=== PATIENT | female | born 1995 | race Caucasian/White ===

== ENCOUNTER 2017-04-19 11:42 | Emergency (ER) | payer BC ==
[2017-04-19 12:43] LABS: BILIRUBIN,URINE NEGATIVE (NEG); GLUCOSE,URINE NEGATIVE (NEG); NITRITE,URINE NEGATIVE (NEG); PH,URINE 5.5; PROTEIN,URINE NEGATIVE (NEG-TRACE); UROBILINOGEN,URINE 0.2 mg/dL (0.2 mg/dL)
[2017-04-19 12:52] LABS: BACTERIA,URINE 0 /HPF (0-FEW); RBC,URINE >40 /HPF (0-2); SQUAMOUS EPITHELIAL CELL,UR FEW /LPF; WBC,URINE 0 /HPF (0-4)
[2017-04-19 13:03] LABS: BASO # 0.1 x10^3/uL (0.0-0.2); BASO % 1 % (0-3); EOS % 2 % (0-3); HEMATOCRIT 38.8 % (36.0-47.0); HEMOGLOBIN 12.8 g/dL (12.0-15.5); LYMPH # 3.7 x10^3/uL (1.0-4.8); LYMPH % 39 % (24-48); MEAN CORPUSCULAR HEMOGLOBIN 28 pg (25-35); MEAN CORPUSCULAR HGB CONC 33 g/dL (31-37); MEAN CORPUSCULAR VOLUME 84 fL (79-100); MONO % 8 % (0-9); NEUT % 51 % (31-73); PLATELET COUNT 340 x10^3/uL (140-400); RED CELL DISTRIBUTION WIDTH 13.8 % (11.5-14.5); WHITE BLOOD COUNT 9.4 x10^3/uL (4.0-11.0)
[2017-04-19 13:15] LABS: CALCIUM 8.9 mg/dL (8.5-10.1); CREATININE 0.9 mg/dL (0.6-1.0); POTASSIUM 3.6 mmol/L (3.5-5.1)
[2017-04-19 13:22] LABS: ALBUMIN/GLOBULIN RATIO 1.1 (1.0-1.7); TOTAL BILIRUBIN 0.4 mg/dL (0.2-1.0); TOTAL PROTEIN 7.8 g/dL (6.4-8.2)
[2017-04-19 15:00] VITALS: BP 114/65
--- NOTE | 2017-04-19 15:09 | ED.ADGEN ---
Past Medical History Past Medical History: Asthma, Endometriosis, GERD, Other Additional Past Medical Histor: PCOS Past Surgical History: Cholecystectomy, Tonsillectomy, Other Additional Past Surgical Histo: Addenoids, L knee, Alcohol Use: Occasionally Drug Use: None Adult General Chief Complaint Chief Complaint: VAGINAL BLEEDING HPI HPI Patient is a 21 year old woman, history of PCOS, endometriosis, asthma, who presents to the emergency department with a complaint of metal pain, and vaginal bleeding that has been heavy over the past 3 days. Patient states 4 days ago she had a "possibly positive" test at home she states was very faintly positive. Patient is not taking any control medication, she denies any injuries, any recent travel or surgery, denies any nausea or vomiting , any weakness numbness or tingling, any sick contacts or exposures, any rashes , any swelling of the extremities. Denies any similar symptoms previously, which she states she has irregular periods it from time to time. States her last menstrual period was March 23 through March 26. Review of Systems Review of Systems Constitutional: Denies fever or chills. [] Eyes: Denies change in visual acuity. [] HENT: Denies nasal congestion or sore throat. [] Respiratory: Denies cough or shortness of breath. [] Cardiovascular: Denies chest pain or edema. [] GI: Cramping abdominal pain associated with heavy vaginal bleeding, no nausea, vomiting, bloody stools or diarrhea. : Denies dysuria. [] Musculoskeletal: Denies back pain or joint pain. [] Integument: Denies rash. [] Neurologic: Denies headache, focal weakness or sensory changes. [] Endocrine: Denies polyuria or polydipsia. [] Lymphatic: Denies swollen glands. [] Psychiatric: Denies depression or anxiety. [] Allergies Allergies Allergies Coded Allergies Type Severity Reaction Last Updated Verified No Known Drug Allergies 01/30/16 No Physical Exam Physical Exam Constitutional: Well developed, obese, no acute distress, non-toxic appearance. [] HENT: Normocephalic, atraumatic, bilateral external ears normal, oropharynx moist, no oral exudates, nose normal. [] Eyes: PERRLA, EOMI, conjunctiva normal, no discharge. [] Neck: Normal range of motion, no tenderness, supple, no stridor. [] Cardiovascular:Heart rate regular rhythm, no murmur , S1, S2, rubs or gallops. [ ] Lungs & Thorax: Bilateral breath sounds clear to auscultation, no wheezing, rhonchi, rales. No chest or crepitus or tenderness. [] Abdomen: Bowel sounds normal, soft, mild tenderness palpation in the suprapubic pelvic region, no masses, no pulsatile masses. [] Skin: Warm, dry, no erythema, no rash. [] Back: No tenderness, no CVA tenderness. [] Extremities: No tenderness, no cyanosis, no clubbing, ROM intact, no edema. [ Negative Homans sign.] Neurologic: Alert and oriented X 3, normal motor function, normal sensory function, no focal deficits noted. [] Psychologic: Affect normal, judgement normal, mood normal. [ Pelvic examination: External examination is normal, bimanual examination reveals a closed os, with no adnexal masses or tenderness identified, no CMT. Small amount of dark red blood noted on glove. Speculum examination performed without issue, reveals normal-appearing cervix, with no active bleeding. Small amount of dark blood in vault. Specimens taken without issue. Current Patient Data Vital Signs Vital Signs Date Time Temp Pulse Resp B/P (MAP) Pulse Ox O2 Delivery O2 Flow Rate FiO2 04/19/17 14:00 18 115/62 (79) 100 04/19/17 13:20 96 04/19/17 12:20 98.5 98.5 Lab Values Laboratory Tests Test 04/19/17 11:33 04/19/17 12:26 04/19/17 12:45 POC Urine HCG, Qualitative Hcg negative (Negative) Urine Collection Type Unknown Urine Color Yellow Urine Clarity Clear Urine pH 5.5 Urine Specific [place] 1.020 Urine Protein Negative mg/dL (NEG-TRACE) Urine Glucose (UA) Negative mg/dL (NEG) Urine Ketones (Stick) Negative mg/dL (NEG) Urine Blood Large (NEG) Urine Nitrite Negative (NEG) Urine Bilirubin Negative (NEG) Urine Urobilinogen Dipstick 0.2 mg/dL (0.2 mg/dL) Urine Leukocyte Esterase Small (NEG) Urine RBC >40 /HPF (0-2) Urine WBC 0 /HPF (0-4) Urine Squamous Epithelial Cells Few /LPF Urine Bacteria 0 /HPF (0-FEW) Urine Mucus Mod /LPF White Blood Count 9.4 x10^3/uL (4.0-11.0) Red Blood Count 4.60 x10^6/uL (3.50-5.40) Hemoglobin 12.8 g/dL (12.0-15.5) Hematocrit 38.8 % (36.0-47.0) Mean Corpuscular Volume 84 fL (79-100) Mean Corpuscular Hemoglobin 28 pg (25-35) Mean Corpuscular Hemoglobin Concent 33 g/dL (31-37) Red Cell Distribution Width 13.8 % (11.5-14.5) Platelet Count 340 x10^3/uL (140-400) Neutrophils (%) (Auto) 51 % (31-73) Lymphocytes (%) (Auto) 39 % (24-48) Monocytes (%) (Auto) 8 % (0-9) Eosinophils (%) (Auto) 2 % (0-3) Basophils (%) (Auto) 1 % (0-3) Neutrophils # (Auto) 4.8 x10^3uL (1.8-7.7) Lymphocytes # (Auto) 3.7 x10^3/uL (1.0-4.8) Monocytes # (Auto) 0.7 x10^3/uL (0.0-1.1) Eosinophils # (Auto) 0.2 x10^3/uL (0.0-0.7) Basophils # (Auto) 0.1 x10^3/uL (0.0-0.2) Maternal Serum HCG Beta Subunit < 1 mIU/mL (0-6) Sodium Level 143 mmol/L (136-145) Potassium Level 3.6 mmol/L (3.5-5.1) Chloride Level 106 mmol/L (98-107) Carbon Dioxide Level 29 mmol/L (21-32) Anion Gap 8 (6-14) Blood Urea Nitrogen 8 mg/dL (7-20) Creatinine 0.9 mg/dL (0.6-1.0) Estimated GFR (Cockcroft-Gault) 79.0 BUN/Creatinine Ratio 9 (6-20) Glucose Level 98 mg/dL (70-99) Calcium Level 8.9 mg/dL (8.5-10.1) Total Bilirubin 0.4 mg/dL (0.2-1.0) Aspartate Amino Transferase (AST) 17 U/L (15-37) Alanine Aminotransferase (ALT) 25 U/L (14-59) Alkaline Phosphatase 75 U/L (46-116) Total Protein 7.8 g/dL (6.4-8.2) Albumin 4.0 g/dL (3.4-5.0) Albumin/Globulin Ratio 1.1 (1.0-1.7) Laboratory Tests 04/19/17 12:45 Laboratory Tests 04/19/17 12:45 Microbiology 04/19/17 Wet Prep - Final, Complete EKG EKG Not indicated. [] Radiology/Procedures Radiology/Procedures Not indicated. [] Course & Med Decision Making Course & Med Decision Making Pertinent Labs and Imaging studies reviewed. (See chart for details) Patient well-appearing, states that she has been using multiple tampons a day, up to one every 30-45 minutes over the past several days, and is on her second box with a past 3 days, however bleeding appears to have slowed prior to arrival in the emergency department. Patient with no active bleeding noted on examination in the ED. Hemoglobin is 12.8, all vital signs within normal limits. Patient's hCG urine is negative and the ED, beta quantitative assay ordered based on patient's report of a home test was positive, resulted at less than 1. No evidence of this is a missed spontaneous , this is consistent with dysfunctional uterine bleeding. I did discuss this with patient, she continues to have very mild bleeding in the emergency department, with no need to re-change her tampon at this time. Discussed concerning symptoms that prompt return to the emergency department for additional evaluation, importance of follow-up with her [employer]. Patient voiced understanding and agreement with plan as stated, discharged home in stable condition with family with plan as above. Dragon Disclaimer Dragon Disclaimer This electronic medical record was generated, in whole or in part, using a voice recognition dictation system. Departure Impression: Primary Impression: Dysfunctional uterine bleeding Additional Impression: Abdominal pain Disposition: HOME, SELF-CARE Condition: IMPROVED Problem Qualifiers NARESH THOMSON DO Apr 19, 2017 15:09
== END 2017-04-19 15:17 | disposition home or self-care (01) ==
LOC: ER 11:42
DX: N93.8 Other specified abnormal uterine and vaginal bleeding (principal); J45.909 Unspecified asthma, uncomplicated; K21.9 Gastro-esophageal reflux disease without esophagitis; E28.2 Polycystic ovarian syndrome; Z90.49 Acquired absence of other specified parts of digestive tract
CPT/HCPCS: 36415; 80053; 81001; 81025; 84702; 85027; 99284; Q0111

== ENCOUNTER 2018-01-28 20:21 | Emergency (ER) | payer BC ==
[2018-01-28 20:34] LABS: ADD MAN DIFF? NO
[2018-01-28 20:36] LABS: BASO # 0.1 x10^3/uL (0.0-0.2); BASO % 1 % (0-3); EOS # 0.2 x10^3/uL (0.0-0.7); EOS % 2 % (0-3); HEMATOCRIT 38.7 % (36.0-47.0); HEMOGLOBIN 12.8 g/dL (12.0-15.5); LYMPH # 6.1 x10^3/uL (1.0-4.8); LYMPH % 44 % (24-48); MEAN CORPUSCULAR HEMOGLOBIN 28 pg (25-35); MEAN CORPUSCULAR HGB CONC 33 g/dL (31-37); MEAN CORPUSCULAR VOLUME 85 fL (79-100); MONO % 7 % (0-9); NEUT # 6.5 x10^3uL (1.8-7.7); NEUT % 46 % (31-73); PLATELET COUNT 359 x10^3/uL (140-400); RED BLOOD COUNT 4.58 x10^6/uL (3.50-5.40); RED CELL DISTRIBUTION WIDTH 13.9 % (11.5-14.5); WHITE BLOOD COUNT 13.9 x10^3/uL (4.0-11.0)
[2018-01-28 20:47] LABS: ANION GAP 7 (6-14); BLOOD UREA NITROGEN 11 mg/dL (7-20); BUN/CREATININE RATIO 12 (6-20); CALCIUM 8.9 mg/dL (8.5-10.1); CARBON DIOXIDE 30 mmol/L (21-32); CHLORIDE 105 mmol/L (98-107); CREATININE 0.9 mg/dL (0.6-1.0); GFR 78.3; GLUCOSE 102 mg/dL (70-99); POTASSIUM 3.6 mmol/L (3.5-5.1); SODIUM 142 mmol/L (136-145)
[2018-01-28] MEDS: IV NORMAL SALINE 1000ML BAG 1,000 ML IV (20:50)
[2018-01-28 20:54] LABS: ALBUMIN 4.1 g/dL (3.4-5.0); ALBUMIN/GLOBULIN RATIO 1.2 (1.0-1.7); ALK PHOS 64 U/L (46-116); ALT (SGPT) 26 U/L (14-59); AST (SGOT) 18 U/L (15-37); CREATINE KINASE 137 U/L (26-192); TOTAL BILIRUBIN 0.2 mg/dL (0.2-1.0); TOTAL PROTEIN 7.4 g/dL (6.4-8.2)
[2018-01-28 21:04] LABS: TROPONINI < 0.017 ng/mL (0.000-0.055)
[2018-01-28 22:02] LABS: BILIRUBIN,URINE NEGATIVE (NEG); CLARITY,URINE CLEAR; COLOR,URINE YELLOW; GLUCOSE,URINE NEGATIVE (NEG); NITRITE,URINE NEGATIVE (NEG); PH,URINE 6.5; PROTEIN,URINE NEGATIVE (NEG-TRACE); UROBILINOGEN,URINE 0.2 mg/dL (0.2 mg/dL)
[2018-01-28 22:08] LABS: BACTERIA,URINE MANY /HPF (0-FEW); RBC,URINE 0 /HPF (0-2); SQUAMOUS EPITHELIAL CELL,UR MOD /LPF
[2018-01-28] MEDS: diphenhydrAMINE 50 MG/ML VIAL IVP (22:32)
[2018-01-28] MEDS: KETOROLAC 30 MG/ML INJ. IV (22:32)
[2018-01-28] MEDS: PROMETHAZINE 12.5 MG in IV NORMAL SALINE 50ML 50 ML IV (22:39)
== END 2018-01-28 23:15 | disposition home or self-care (01) ==
LOC: ER 20:21
DX: R55 Syncope and collapse (principal); N39.0 Urinary tract infection, site not specified; D72.829 Elevated white blood cell count, unspecified; J45.909 Unspecified asthma, uncomplicated; E28.2 Polycystic ovarian syndrome; Z90.49 Acquired absence of other specified parts of digestive tract
CPT/HCPCS: 36415; 80053; 81001; 82550; 83735; 84484; 85025; 87086; 93005; 96361; 96365; 96375; 99285-25; J1200; J1885; J2550; J7030

== ENCOUNTER 2019-01-24 21:52 | Emergency (ER) | payer BC, OTHER ==
[~2019-01-24] VITALS: Ht 157.5 cm; Wt 121.1 kg
[~2019-01-24 21:52] MED LIST: CIPR250T PO; ONDA4TAB10 PO
[2019-01-24 22:51] LABS: BASO # 0.1 x10^3/uL (0.0-0.2); BASO % 1 % (0-3); EOS # 0.2 x10^3/uL (0.0-0.7); EOS % 2 % (0-3); HEMATOCRIT 37.9 % (36.0-47.0); HEMOGLOBIN 12.3 g/dL (12.0-15.5); LYMPH # 5.1 x10^3/uL (1.0-4.8); LYMPH % 40 % (24-48); MEAN CORPUSCULAR HEMOGLOBIN 28 pg (25-35); MEAN CORPUSCULAR HGB CONC 33 g/dL (31-37); MEAN CORPUSCULAR VOLUME 85 fL (79-100); MONO # 0.9 x10^3/uL (0.0-1.1); MONO % 7 % (0-9); NEUT # 6.7 x10^3uL (1.8-7.7); NEUT % 51 % (31-73); PLATELET COUNT 361 x10^3/uL (140-400); RED BLOOD COUNT 4.47 x10^6/uL (3.50-5.40); RED CELL DISTRIBUTION WIDTH 13.5 % (11.5-14.5)
[2019-01-24 22:51] LABS: BILIRUBIN,URINE NEGATIVE (NEG); CLARITY,URINE CLEAR; COLOR,URINE YELLOW; NITRITE,URINE NEGATIVE (NEG); PH,URINE 5.5; PROTEIN,URINE 30 mg/dL (NEG-TRACE); UROBILINOGEN,URINE 0.2 mg/dL (0.2 mg/dL)
[2019-01-24 23:03] LABS: BACTERIA,URINE MANY /HPF (0-FEW); RBC,URINE 0 /HPF (0-2); SQUAMOUS EPITHELIAL CELL,UR MANY /LPF
[2019-01-24 23:07] LABS: CALCIUM 8.7 mg/dL (8.5-10.1); CREATININE 0.9 mg/dL (0.6-1.0); GFR 77.6; POTASSIUM 3.8 mmol/L (3.5-5.1)
[2019-01-24 23:08] LABS: ALBUMIN 3.6 g/dL (3.4-5.0); ALBUMIN/GLOBULIN RATIO 0.9 (1.0-1.7); TOTAL BILIRUBIN 0.2 mg/dL (0.2-1.0); TOTAL PROTEIN 7.4 g/dL (6.4-8.2)
--- NOTE | 2019-01-24 23:09 | PHYS DOC ---
Past Medical History Past Medical History: Asthma, Endometriosis Additional Past Medical Histor: PCOS Past Surgical History: Cholecystectomy, Tonsillectomy Additional Past Surgical Histo: Addenoids, L knee, Alcohol Use: None Drug Use: None Adult General Chief Complaint Chief Complaint: ABDOMINAL PAIN HPI HPI Patient is a 23 year old female who presents with RLQ abdominal pain. Pt states it started at 1600 today as a dull and crampy pain but started to become more sharp, and is now a constant, sharp 8/10 pain that radiates to the RUQ and periumbilical region. She has a history of PCOS and endometriosis and relates her symptoms are similar to what she experienced from a ruptured ovarian cyst, but notes the pain is not as bad. She took tylenol without relief. She denies n/ v, bowel/bladder changes, constipation, diarrhea, chest pain, SOB, and vaginal bleeding. LMP was the "last week of December" per pt. She admits to ANAND, noting that it is typical for her and not worrisome. Review of Systems Review of Systems Constitutional: Denies fever or chills Eyes: Denies change in visual acuity, redness, or eye pain HENT: Denies nasal congestion or sore throat Respiratory: Denies cough or shortness of breath Cardiovascular: No additional information not addressed in HPI GI: Denies nausea, vomiting, bloody stools or diarrhea. Admits abdominal pain : Denies dysuria or hematuria Musculoskeletal: Denies back pain or joint pain Integument: Denies rash or skin lesions Neurologic: Denies headache, focal weakness or sensory changes Endocrine: Denies polyuria or polydipsia All other systems were reviewed and found to be within normal limits, except as documented in this note. Current Medications Current Medications Current Medications Medications (Trade) Dose Ordered Sig/Hans Start Time Stop Time Status Last Admin Dose Admin Fentanyl Citrate (Fentanyl 2ml Vial) 50 mcg 1X ONCE 01/24/19 23:15 01/24/19 23:16 DC 01/24/19 23:27 50 MCG Info (CONTRAST GIVEN -- Rx MONITORING) 1 each PRN DAILY PRN 01/25/19 00:30 01/25/19 03:22 DC Iohexol (Omnipaque 300 Mg/ml) 75 ml 1X ONCE 01/25/19 00:30 01/25/19 00:31 DC 01/25/19 00:44 75 ML Morphine Sulfate (Morphine Sulfate) 4 mg 1X ONCE 01/25/19 00:30 01/25/19 00:32 DC 01/25/19 00:53 4 MG Allergies Allergies Allergies Coded Allergies Type Severity Reaction Last Updated Verified No Known Drug Allergies 01/30/16 No Physical Exam Physical Exam Constitutional: Well developed, well nourished, no acute distress, non-toxic appearance. Eyes: PERRLA, EOMI, conjunctiva normal, no discharge. Neck: Normal range of motion, no tenderness, supple, no stridor. Cardiovascular:Heart rate regular rhythm, no murmur Lungs & Thorax: Bilateral breath sounds clear to auscultation Abdomen: Bowel sounds normal, soft. She is tender to light palpation in the RLQ and tender to deep palpation in the RUQ and periumbilical region. Skin: Warm, dry, no erythema, no rash. Back: No tenderness, no CVA tenderness. Extremities: No tenderness, no cyanosis, no clubbing, ROM intact, no edema. Neurologic: Alert and oriented X 3, normal motor function, normal sensory function, no focal deficits noted. Psychologic: Affect normal, judgement normal, mood normal. Current Patient Data Vital Signs Vital Signs Date Time Temp Pulse Resp B/P (MAP) Pulse Ox O2 Delivery O2 Flow Rate FiO2 01/25/19 01:23 81 106/58 (74) 95 01/25/19 00:53 16 Room Air 01/24/19 22:05 98.1 98.1 Lab Values Laboratory Tests Test 01/24/19 21:54 01/24/19 22:15 01/24/19 22:40 Urine Collection Type Unknown Urine Color Yellow Urine Clarity Clear Urine pH 5.5 Urine Specific [place] >=1.030 Urine Protein 30 mg/dL (NEG-TRACE) Urine Glucose (UA) Negative mg/dL (NEG) Urine Ketones (Stick) Trace mg/dL (NEG) Urine Blood Negative (NEG) Urine Nitrite Negative (NEG) Urine Bilirubin Negative (NEG) Urine Urobilinogen Dipstick 0.2 mg/dL (0.2 mg/dL) Urine Leukocyte Esterase Trace (NEG) Urine RBC 0 /HPF (0-2) Urine WBC 1-4 /HPF (0-4) Urine Squamous Epithelial Cells Many /LPF Urine Bacteria Many /HPF (0-FEW) Urine Mucus Marked /LPF POC Urine HCG, Qualitative Hcg negative (Negative) White Blood Count 13.0 x10^3/uL (4.0-11.0) H Red Blood Count 4.47 x10^6/uL (3.50-5.40) Hemoglobin 12.3 g/dL (12.0-15.5) Hematocrit 37.9 % (36.0-47.0) Mean Corpuscular Volume 85 fL (79-100) Mean Corpuscular Hemoglobin 28 pg (25-35) Mean Corpuscular Hemoglobin Concent 33 g/dL (31-37) Red Cell Distribution Width 13.5 % (11.5-14.5) Platelet Count 361 x10^3/uL (140-400) Neutrophils (%) (Auto) 51 % (31-73) Lymphocytes (%) (Auto) 40 % (24-48) Monocytes (%) (Auto) 7 % (0-9) Eosinophils (%) (Auto) 2 % (0-3) Basophils (%) (Auto) 1 % (0-3) Neutrophils # (Auto) 6.7 x10^3uL (1.8-7.7) Lymphocytes # (Auto) 5.1 x10^3/uL (1.0-4.8) H Monocytes # (Auto) 0.9 x10^3/uL (0.0-1.1) Eosinophils # (Auto) 0.2 x10^3/uL (0.0-0.7) Basophils # (Auto) 0.1 x10^3/uL (0.0-0.2) Sodium Level 142 mmol/L (136-145) Potassium Level 3.8 mmol/L (3.5-5.1) Chloride Level 104 mmol/L (98-107) Carbon Dioxide Level 28 mmol/L (21-32) Anion Gap 10 (6-14) Blood Urea Nitrogen 14 mg/dL (7-20) Creatinine 0.9 mg/dL (0.6-1.0) Estimated GFR (Cockcroft-Gault) 77.6 BUN/Creatinine Ratio 16 (6-20) Glucose Level 92 mg/dL (70-99) Calcium Level 8.7 mg/dL (8.5-10.1) Total Bilirubin 0.2 mg/dL (0.2-1.0) Aspartate Amino Transferase (AST) 17 U/L (15-37) Alanine Aminotransferase (ALT) 25 U/L (14-59) Alkaline Phosphatase 61 U/L (46-116) Total Protein 7.4 g/dL (6.4-8.2) Albumin 3.6 g/dL (3.4-5.0) Albumin/Globulin Ratio 0.9 (1.0-1.7) L Laboratory Tests 01/24/19 22:40 Laboratory Tests 01/24/19 22:40 EKG EKG [] Radiology/Procedures Radiology/Procedures Pelvic/Abd US 01/24/19 at 22:57 IMPRESSION: 1. Bilateral ovaries demonstrate evidence of blood flow. 2. Dominant follicle or simple cyst in the right ovary.[] Impressions: FINDINGS: Heart is normal in size. No pericardial or pleural effusion. Clear lung bases. Liver, spleen, pancreas, adrenals within normal limits. Status post cholecystectomy. No nephrolithiasis or hydronephrosis. No free pelvic fluid or ascites. No enlarged retroperitoneal or pelvic adenopathy. No bowel obstruction. Normal appendix. No pneumoperitoneum. Anteverted uterus. Urinary bladder demonstrates no radiopaque stones. No suspicious bony lesion. IMPRESSION: No acute findings. Electronically signed by: Clayton Hernandez DO (01/25/2019 12:58 AM) [facility] DICTATED and SIGNED BY: CLAYTON HERNANDEZ DO DATE: 01/25/19 0058 Course & Med Decision Making Course & Med Decision Making 23 yo female with a history of PCOS, endometriosis, and ruptured ovarian cysts presents with RLQ abdominal pain that is rated an 8/10 and described as sharp and constant. Pt is Tender to light palpation in the RLQ, and tender to deep palpation in the RUQ and periumbilical region. Heel strike was positive and she exhibited tenderness at McBurney's point. Ddx Ovarian cyst, w/ or w/o rupture. Ovarian Torsion. Appendicitis. - has been r/o by negative urine bHCG Workup Abd/pelvic ultrasound to r/o or in ovarian cyst/torsion/pathology. If no ovarian or other gynecologist pathology is seen an abd ct will be ordered to r/o appendicitis. CBC, CMP, Urine bHCG, pelvic exam may be warranted if etiology is still unknown after US and labs. final plan: ct shows no acute pathology pt has hx of ovarian cysts, has simple cyst right ovary feeling better offered norco, pt prefers motrin only Loi Disclaimer Dragon Disclaimer This electronic medical record was generated, in whole or in part, using a voice recognition dictation system. Departure Departure Impression: Primary Impression: Ovarian cyst Disposition: 01 HOME, SELF-CARE Condition: STABLE Referrals: JOHN SNYDER DO (PCP) TRELL SMITH MD Jan 24, 2019 23:09
[2019-01-24] MEDS ORDERED: fentaNYL PF VIAL 100 MCG/2 ML VIAL IV ONE (23:15)
--- NOTE | 2019-01-25 00:07 | RAD ---
Indication:ACUTE RLQ PAIN TECHNIQUE: Grayscale, color Doppler and spectral waveform images of the pelvis obtained. COMPARISON:None FINDINGS: The uterus is anteverted and measures 7.8 x 3.6 x 4.6 cm (nodule, AP, transverse). Nabothian cysts are seen in the cervix. Endometrial stripe measures 1 cm in thickness and is normal in appearance. Right ovary measures 2.2 x 2.8 x 2.7 cm with a 1.4 x 1.8 x 1.6 cm anechoic lesion most likely dominant follicle or simple cyst. The right ovary demonstrates evidence of blood flow. Left ovary is difficult to visualize but grossly measures 2.0 x 1.5 x 1.7 cm and shows evidence of blood flow with a 2.8 x 1.6 x 1.7 cm dominant follicle or simple cyst. No free pelvic fluid. IMPRESSION: 1. Bilateral ovaries demonstrate evidence of blood flow. 2. Dominant follicle or simple cyst in the right ovary. Electronically signed by: Clayton Hernandez DO (01/25/2019 12:04 AM) [facility]
[2019-01-25] MEDS ORDERED: IOHEXOL 300 MG/ML 100ML VIAL. IV ONE (00:30)
[2019-01-25] MEDS ORDERED: CONTRAST GIVEN. MC PRN (00:30)
[2019-01-25] MEDS ORDERED: MORPHINE SULFATE 4 MG/ML VIAL. IV ONE (00:30)
--- NOTE | 2019-01-25 01:00 | RAD ---
PQRS Compliance statement: One or more of the following individualized dose reduction techniques were utilized for this examination: 1. Automated exposure control. 2. Adjustment of the mA and/or kV according to patient size. 3. Use of iterative reconstruction technique. Indication:rlq pain, eval for appendicitis. OMNI 300, 75ml TECHNIQUE: CT abdomen and pelvis with IV contrast with multiplanar reformats. COMPARISON: None FINDINGS: Heart is normal in size. No pericardial or pleural effusion. Clear lung bases. Liver, spleen, pancreas, adrenals within normal limits. Status post cholecystectomy. No nephrolithiasis or hydronephrosis. No free pelvic fluid or ascites. No enlarged retroperitoneal or pelvic adenopathy. No bowel obstruction. Normal appendix. No pneumoperitoneum. Anteverted uterus. Urinary bladder demonstrates no radiopaque stones. No suspicious bony lesion. IMPRESSION: No acute findings. Electronically signed by: Clayton Hernandez DO (01/25/2019 12:58 AM) [facility]
[2019-01-25 01:23] VITALS: BP 106/58
== END 2019-01-25 03:15 | disposition home or self-care (01) ==
LOC: ER 21:52
DX: N83.01 Follicular cyst of right ovary (principal); J45.909 Unspecified asthma, uncomplicated; Z90.49 Acquired absence of other specified parts of digestive tract; Z90.89 Acquired absence of other organs
CPT/HCPCS: 36415; 74177; 76830; 76856; 80053; 81001; 81025; 85025; 96374; 96375; 99284; J2270; J3010; Q9967; 87086

== ENCOUNTER 2019-07-02 11:59 | Emergency (ER) | payer BC, OTHER ==
[~2019-07-02] VITALS: Ht 154.9 cm; Wt 121.1 kg
[2019-07-02] MEDS ORDERED: IV NORMAL SALINE 1000ML BAG 1,000 ML IV ONE (13:30)
[2019-07-02] MEDS ORDERED: ONDANSETRON PF 4 MG/2 ML VIAL. IV ONE (13:30)
[2019-07-02] MEDS ORDERED: MORPHINE SULFATE 4 MG/ML VIAL. IV ONE (13:30)
--- NOTE | 2019-07-02 13:33 | PHYS DOC ---
Past Medical History Past Medical History: Asthma, Endometriosis Additional Past Medical Histor: PCOS Past Surgical History: Cholecystectomy, Tonsillectomy Additional Past Surgical Histo: Addenoids, L knee, Alcohol Use: None Drug Use: None Adult General Chief Complaint Chief Complaint: ABDOMINAL PAIN HPI HPI Patient is a 23 year old female that presents with vaginal bleeding since last night. The patient states she's been bleeding through 1 pad and tampon per hour. The patient also states she did not have a period last month. Rates her pelvic pain as 9 out of 10 in severity and sharp. No pain medicine prior to arrival. Review of Systems Review of Systems Constitutional: Denies fever or chills [] Eyes: Denies change in visual acuity, redness, or eye pain [] HENT: Denies nasal congestion or sore throat [] Respiratory: Denies cough or shortness of breath [] Cardiovascular: No additional information not addressed in HPI [] GI: Reports abdominal pain, Denies nausea, vomiting, bloody stools or diarrhea [ ] : Reports vaginal bleeding. Musculoskeletal: Denies back pain or joint pain [] Integument: Denies rash or skin lesions [] Neurologic: Denies headache, focal weakness or sensory changes [] Endocrine: Denies polyuria or polydipsia [] Complete systems were reviewed and found to be within normal limits, except as documented in this note. Current Medications Current Medications Current Medications Medications (Trade) Dose Ordered Sig/Hasn Start Time Stop Time Status Last Admin Dose Admin Morphine Sulfate (Morphine Sulfate) 4 mg 1X ONCE 07/02/19 13:30 07/02/19 13:31 DC 07/02/19 13:55 4 MG Ondansetron HCl (Zofran) 4 mg 1X ONCE 07/02/19 13:30 07/02/19 13:31 DC 07/02/19 13:55 4 MG Sodium Chloride 1,000 ml @ 1,000 mls/hr 1X ONCE 07/02/19 13:30 07/02/19 14:29 DC 07/02/19 13:55 1,000 MLS/HR Allergies Allergies Allergies Coded Allergies Type Severity Reaction Last Updated Verified No Known Drug Allergies 01/30/16 No Physical Exam Physical Exam Constitutional: Well developed, well nourished, no acute distress, non-toxic appearance. [] HENT: Normocephalic, atraumatic, bilateral external ears normal, oropharynx moist, no oral exudates, nose normal. [] Eyes: PERRLA, EOMI, conjunctiva normal, no discharge. [] Neck: Normal range of motion, no tenderness, supple, no stridor. [] Cardiovascular:Heart rate regular rhythm, no murmur [] Lungs & Thorax: Bilateral breath sounds clear to auscultation [] Abdomen: Bowel sounds normal, soft, lower pelvic tenderness., no masses, no pulsatile masses. [] Skin: Warm, dry, no erythema, no rash. [] Back: No tenderness, no CVA tenderness. [] Extremities: No tenderness, no cyanosis, no clubbing, ROM intact, no edema. [] Neurologic: Alert and oriented X 3, normal motor function, normal sensory function, no focal deficits noted. [] Psychologic: Affect normal, judgement normal, mood normal. [] Pelvic Exam: External exam is normal and without rash how there is dried blood externally, No CMT, OS is closed, copious bleeding noted, No discharge, uterus NTTP, mild tenderness noted Current Patient Data Vital Signs Vital Signs Date Time Temp Pulse Resp B/P (MAP) Pulse Ox O2 Delivery O2 Flow Rate FiO2 07/02/19 13:55 20 07/02/19 12:22 98.3 100 160/89 (112) 96 Room Air 98.3 Lab Values Laboratory Tests Test 07/02/19 12:15 07/02/19 12:18 07/02/19 13:42 Urine Collection Type Unknown Urine Color Yellow Urine Clarity Clear Urine pH 6.5 Urine Specific Dillard 1.010 Urine Protein Negative mg/dL (NEG-TRACE) Urine Glucose (UA) Negative mg/dL (NEG) Urine Ketones (Stick) Negative mg/dL (NEG) Urine Blood Large (NEG) Urine Nitrite Negative (NEG) Urine Bilirubin Negative (NEG) Urine Urobilinogen Dipstick 0.2 mg/dL (0.2 mg/dL) Urine Leukocyte Esterase Negative (NEG) Urine RBC 6-10 /HPF (0-2) Urine WBC Occ /HPF (0-4) Urine Squamous Epithelial Cells Few /LPF Urine Bacteria 0 /HPF (0-FEW) POC Urine HCG, Qualitative Hcg negative (Negative) White Blood Count 10.0 x10^3/uL (4.0-11.0) Red Blood Count 4.22 x10^6/uL (3.50-5.40) Hemoglobin 11.9 g/dL (12.0-15.5) L Hematocrit 35.5 % (36.0-47.0) L Mean Corpuscular Volume 84 fL (79-100) Mean Corpuscular Hemoglobin 28 pg (25-35) Mean Corpuscular Hemoglobin Concent 34 g/dL (31-37) Red Cell Distribution Width 13.6 % (11.5-14.5) Platelet Count 271 x10^3/uL (140-400) Neutrophils (%) (Auto) 49 % (31-73) Lymphocytes (%) (Auto) 43 % (24-48) Monocytes (%) (Auto) 7 % (0-9) Eosinophils (%) (Auto) 1 % (0-3) Basophils (%) (Auto) 1 % (0-3) Neutrophils # (Auto) 4.9 x10^3/uL (1.8-7.7) Lymphocytes # (Auto) 4.3 x10^3/uL (1.0-4.8) Monocytes # (Auto) 0.7 x10^3/uL (0.0-1.1) Eosinophils # (Auto) 0.1 x10^3/uL (0.0-0.7) Basophils # (Auto) 0.0 x10^3/uL (0.0-0.2) Sodium Level 142 mmol/L (136-145) Potassium Level 4.3 mmol/L (3.5-5.1) Chloride Level 106 mmol/L (98-107) Carbon Dioxide Level 27 mmol/L (21-32) Anion Gap 9 (6-14) Blood Urea Nitrogen 8 mg/dL (7-20) Creatinine 0.8 mg/dL (0.6-1.0) Estimated GFR (Cockcroft-Gault) 88.9 BUN/Creatinine Ratio 10 (6-20) Glucose Level 84 mg/dL (70-99) Calcium Level 9.2 mg/dL (8.5-10.1) Total Bilirubin 0.2 mg/dL (0.2-1.0) Aspartate Amino Transferase (AST) 20 U/L (15-37) Alanine Aminotransferase (ALT) 30 U/L (14-59) Alkaline Phosphatase 58 U/L (46-116) Total Protein 7.1 g/dL (6.4-8.2) Albumin 3.9 g/dL (3.4-5.0) Albumin/Globulin Ratio 1.2 (1.0-1.7) Laboratory Tests 07/02/19 13:42 Laboratory Tests 07/02/19 13:42 EKG EKG [] Radiology/Procedures Radiology/Procedures [][facility] [address] [place] [address] IMAGING REPORT Signed PATIENT: SANDIE MOY ACCOUNT: [id number] : 1995 LOCATION: ER AGE: 23 SEX: F EXAM STATUS: REG ER ORD. PHYSICIAN: LILI JEFFRIES APRN REASON: RLQ PAIN PROCEDURE: PELVIS W/TV PELVIS W/TV: 07/02/2019 1:13 PM INDICATION: 23 years old Female. Right lower quadrant pain. History of polycystic ovarian syndrome and endometriosis. COMPARISON: None. TECHNIQUE: Transabdominal and transvaginal sonographic evaluation of the pelvis was performed. Grayscale, color Doppler and spectral waveform analysis were utilized. FINDINGS: UTERUS: Retroverted. Size: 9.1 x 4.5 x 3.9 cm. Masses: None. Endometrium: 6 mm. No suspicious vascularity is identified. RIGHT OVARY: 1.8 x 2.3 x 2.0 cm. Ovary is normal in appearance. LEFT OVARY: 1.3 x 2.2 x 2.5 cm. Ovary is normal in appearance. Arterial and venous waveform are identified within the ovaries bilaterally at the time of imaging. FREE FLUID: None. URINARY BLADDER: Unremarkable. IMPRESSION: Perfusion is noted to the ovaries bilaterally at the time of imaging. Electronically signed by: Karin Monsalve MD (07/02/2019 2:08 PM) [id number] DICTATED and SIGNED BY: KARIN MONSALVE MD DATE: 07/02/19 1408 Course & Med Decision Making Course & Med Decision Making Pertinent Labs and Imaging studies reviewed. (See chart for details) Will perform pelvic exam, get labs, and ultrasound. Will also obtain UA and test. Labs and imaging are unremarkable. Will d/c home. Dragon Disclaimer Dragon Disclaimer This electronic medical record was generated, in whole or in part, using a voice recognition dictation system. Departure Departure Impression: Primary Impression: Vaginal bleeding Disposition: 01 HOME, SELF-CARE Condition: STABLE Referrals: JOHN SNYDER DO (PCP) NIKOLAS SAMUELS Jr, MD Patient Instructions: Menorrhagia Additional Instructions: Thank you for visiting [facility]. We appreciate you trusting us with your care. If any additional problems come up don't hesitate to return to visit us. Please follow up with your primary care provider so they can plan additional care if needed and know about the problem that you had. If symptoms worsen come back to the Emergency Department. Any concerning symptoms that start such as chest pain, shortness of air, weakness or numbness on one side of the body, running high fevers or any other concerning symptoms return to the ER. Please follow up her HEAD OF DIGITAL in regard to this. LILI JEFFRIES APRN Jul 02, 2019 13:33
[2019-07-02 13:51] LABS: BILIRUBIN,URINE NEGATIVE (NEG); CLARITY,URINE CLEAR; COLOR,URINE YELLOW; NITRITE,URINE NEGATIVE (NEG); PH,URINE 6.5; PROTEIN,URINE NEGATIVE (NEG-TRACE); UROBILINOGEN,URINE 0.2 mg/dL (0.2 mg/dL)
[2019-07-02 14:02] LABS: SQUAMOUS EPITHELIAL CELL,UR FEW /LPF
[2019-07-02 14:03] LABS: BACTERIA,URINE 0 /HPF (0-FEW); WBC,URINE OCC /HPF (0-4)
--- NOTE | 2019-07-02 14:11 | RAD ---
PELVIS W/TV: 07/02/2019 1:13 PM INDICATION: 23 years old Female. Right lower quadrant pain. History of polycystic ovarian syndrome and endometriosis. COMPARISON: None. TECHNIQUE: Transabdominal and transvaginal sonographic evaluation of the pelvis was performed. Grayscale, color Doppler and spectral waveform analysis were utilized. FINDINGS: UTERUS: Retroverted. Size: 9.1 x 4.5 x 3.9 cm. Masses: None. Endometrium: 6 mm. No suspicious vascularity is identified. RIGHT OVARY: 1.8 x 2.3 x 2.0 cm. Ovary is normal in appearance. LEFT OVARY: 1.3 x 2.2 x 2.5 cm. Ovary is normal in appearance. Arterial and venous waveform are identified within the ovaries bilaterally at the time of imaging. FREE FLUID: None. URINARY BLADDER: Unremarkable. IMPRESSION: Perfusion is noted to the ovaries bilaterally at the time of imaging. Electronically signed by: Zelda Edward MD (07/02/2019 2:08 PM) [id number]
[2019-07-02 14:49] LABS: BASO % 1 % (0-3); EOS # 0.1 x10^3/uL (0.0-0.7); EOS % 1 % (0-3); HEMATOCRIT 35.5 % (36.0-47.0); HEMOGLOBIN 11.9 g/dL (12.0-15.5); LYMPH # 4.3 x10^3/uL (1.0-4.8); LYMPH % 43 % (24-48); MEAN CORPUSCULAR HEMOGLOBIN 28 pg (25-35); MEAN CORPUSCULAR HGB CONC 34 g/dL (31-37); MEAN CORPUSCULAR VOLUME 84 fL (79-100); MONO # 0.7 x10^3/uL (0.0-1.1); MONO % 7 % (0-9); NEUT # 4.9 x10^3/uL (1.8-7.7); NEUT % 49 % (31-73); PLATELET COUNT 271 x10^3/uL (140-400); RED BLOOD COUNT 4.22 x10^6/uL (3.50-5.40); RED CELL DISTRIBUTION WIDTH 13.6 % (11.5-14.5)
[2019-07-02 14:50] LABS: CALCIUM 9.2 mg/dL (8.5-10.1); CREATININE 0.8 mg/dL (0.6-1.0); GFR 88.9; POTASSIUM 4.3 mmol/L (3.5-5.1)
[2019-07-02 14:57] LABS: ALBUMIN 3.9 g/dL (3.4-5.0); ALBUMIN/GLOBULIN RATIO 1.2 (1.0-1.7); TOTAL BILIRUBIN 0.2 mg/dL (0.2-1.0); TOTAL PROTEIN 7.1 g/dL (6.4-8.2)
[2019-07-02 15:30] VITALS: BP 112/59
== END 2019-07-02 15:44 | disposition home or self-care (01) ==
LOC: ER 11:59
DX: N93.9 Abnormal uterine and vaginal bleeding, unspecified (principal); R10.2 Pelvic and perineal pain; J45.909 Unspecified asthma, uncomplicated; E28.2 Polycystic ovarian syndrome; Z90.49 Acquired absence of other specified parts of digestive tract
CPT/HCPCS: 36415; 76830; 76856; 80053; 81001; 81025; 85025; 86850; 86900; 86901; 96374; 96375; 99285; J2270; J2405; J7030

== ENCOUNTER → 2019-12-15 | Emergency (ER) | payer BC, OTHER | END | disposition left against medical advice (07) | LOC: ER 00:53 | DX: R06.02 Shortness of breath (principal); Z53.21 Procedure and treatment not carried out due to patient leaving prior to being seen by health care provider ==

== ENCOUNTER → 2020-09-02 | Outpatient (CLI) | payer OTHER ==
[~2020-09-02] MED LIST changes: +ALBU2.5V8 INH; +HYDR-2761 PO
== END ==
LOC: SURGPAT 12:26
PROVIDERS: ATTEND Obstetrics & Gynecology
DX: Z01.812 Encounter for preprocedural laboratory examination (principal); Z20.828 Contact with and (suspected) exposure to other viral communicable diseases
CPT/HCPCS: U0003-CS

== ENCOUNTER 2020-09-07 06:08 | Day surgery (SDC) | payer OTHER ==
[~2020-09-07] VITALS: Ht 156.2 cm; Wt 126.0 kg
[~2020-09-07 06:08] MED LIST changes: -HYDR-2761 PO; +ceFAZolin SODIUM 3 GM in IV DEXTROSE 5% 100ML 100 ML IV PRN
[2020-09-07] MEDS ORDERED: PROCHLORPERAZINE 10 MG/2 ML VIAL. IV PRN (07:00)
[2020-09-07] MEDS ORDERED: fentaNYL PF VIAL 100 MCG/2 ML VIAL IV PRN (07:00)
[2020-09-07] MEDS ORDERED: IV RINGERS,LACTATED 1000ML 1,000 ML IV SCH (07:00)
[2020-09-07] MEDS ORDERED: LIDOCAINE 1% PF 2 ML VIAL. ID PRN (07:00)
[2020-09-07] MEDS ORDERED: HYDROmorphone 2 MG/ML VIAL IV PRN (07:00)
[2020-09-07] MEDS ORDERED: MORPHINE SULFATE 2 MG/ML VIAL. IV PRN (07:00)
[2020-09-07] MEDS ORDERED: BUPIVACAINE-EPI 0.25%-1:200000 MPF 30 ML VIAL. INJ ONE (07:00)
[2020-09-07] MEDS ORDERED: ONDANSETRON PF 4 MG/2 ML VIAL. IV PRN (07:00)
[2020-09-07] MEDS ORDERED: METHYLENE BLUE 0.5% 10ml AMPULE. ONE (07:01)
[2020-09-07] MEDS ORDERED: ROCURONIUM 50 MG/5 ML VIAL. ONE (07:09)
[2020-09-07] MEDS ORDERED: MIDAZOLAM HCL/PF 2 MG/2 ML VIAL. ONE (07:09)
[2020-09-07] MEDS ORDERED: DEXAMETHASONE SOD PHOS 4 MG/ML VIAL ONE (07:10)
[2020-09-07] MEDS ORDERED: ONDANSETRON PF 4 MG/2 ML VIAL. ONE (07:10)
[2020-09-07] MEDS ORDERED: LIDOCAINE 2% PF 5 ML VIAL. ONE (07:10)
[2020-09-07] MEDS ORDERED: fentaNYL PF VIAL 250 MCG/5 ML VIAL ONE (07:10)
[2020-09-07] MEDS ORDERED: PROPOFOL 10 MG/ML (20ML) VIAL. IV ONE (07:10)
[2020-09-07] MEDS ORDERED: 0.9 % SODIUM CHLORIDE 20 ML VIAL. IJ ONE ×4 (07:48→08:16)
[2020-09-07] MEDS ORDERED: SEVOFLURANE 61 TO 120 MINUTES. IH ONE (08:07)
[2020-09-07] MEDS ORDERED: GLYCOPYRROLATE 1 MG/5 ML VIAL. ONE (08:46)
[2020-09-07] MEDS ORDERED: NEOSTIGMINE METHYLSULFATE 5 MG/5 ML SYRINGE. ONE (08:46)
[2020-09-07] MEDS ORDERED: KETOROLAC 30 MG/ML VIAL. ONE (08:52)
--- NOTE | 2020-09-07 09:22 | PDOC ---
BRIEF OPERATIVE NOTE Date: Sep 07, 2020 Pre-Op Diagnosis Pelvic pain, history of endometriosis Post-Op Diagnosis endometriosis, mild adhesive disease, left ovarian cyst Procedure Performed operative laparoscopy, lysis of left sided adhesions. left ovarian cystectomy, vapo of endometriosis and chromotubation Surgeon Dr. Hilaria Pardo Android Ios Developer ANGELY Montiel Anesthesiologist Dr. Devine Anesthesia Type: General Blood Loss 10cc IV Fluid see anesthesia Urine Output 100cc straight cath prior to procedure Specimens Obtained left ovarian cyst wall Findings left sided adhesions of desc colon fat, left ovarian cyst, patent bilateral tubes, endometriosis severe on left US ligatment, moderate left side wall and some on the right sidewall and right tube underneath Complications none Operative Note [id number] HILARIA PARDO MD Sep 07, 2020 09:22
[2020-09-07] MEDS ORDERED: HYDROcodone/APAP 5/325MG 1 TAB TABLET PO ONE (09:30)
[2020-09-07] MEDS ORDERED: diphenhydrAMINE HCL 25 MG CAPSULE PO PRN (09:30)
[2020-09-07] MEDS ORDERED: 0.9 % SODIUM CHLORIDE 10 ML DISP.SYRIN. IV PRN (09:30)
[2020-09-07] MEDS ORDERED: MAG HYDROX/ALUMINUM HYD/SIMETH 30 ML ORAL.SUSP PO PRN (09:30)
[2020-09-07] MEDS ORDERED: diphenhydrAMINE 50 MG/ML VIAL IV PRN (09:30)
[2020-09-07] MEDS ORDERED: NALOXONE 0.4 MG/ML VIAL. IV PRN (09:30)
[2020-09-07] MEDS ORDERED: HYDROcodone/APAP 5/325MG 1 TAB TABLET PO PRN ×2 (09:30)
[2020-09-07] MEDS ORDERED: SIMETHICONE 80 MG TAB.CHEW PO PRN (09:30)
[2020-09-07] MEDS ORDERED: CALCIUM CARBONATE 500 MG TAB.CHEW PO PRN (09:30)
[2020-09-07] MEDS ORDERED: HYDR-2761 PO (09:32)
[2020-09-07] MEDS ORDERED: fentaNYL PF VIAL 100 MCG/2 ML VIAL ONE (09:37)
[2020-09-07] MEDS: fentaNYL PF VIAL 100 MCG/2 ML VIAL IV PRN ×2 (09:40→09:53)
[2020-09-07 10:05] VITALS: BP 142/83
--- NOTE | 2020-09-07 11:01 | OP ---
DATE OF SURGERY: 09/07/2020 PREOPERATIVE DIAGNOSES: Pelvic pain with history of endometriosis, dysmenorrhea, and menorrhagia. POSTOPERATIVE DIAGNOSES: Pelvic pain with history of endometriosis, dysmenorrhea, menorrhagia with confirmed endometriosis, mild adhesive disease, a left ovarian cyst, and patent bilateral tubes. PROCEDURES: Operative laparoscopy, vaporization of endometriosis, left ovarian cystectomy, lysis of left-sided adhesions, and chromotubation. SURGEON: Renaldo Pardo M.D. BRANCH GENERAL MANAGER: Yovany Agnel ANESTHESIOLOGIST: Dr. Devine. ANESTHESIA: General. ESTIMATED BLOOD LOSS: 10 mL. URINE OUTPUT: 100 mL straight cath prior to procedure. SPECIMEN REMOVED: Left ovarian cyst wall. FINDINGS: She had mild left-sided adhesions of the fat over the descending colon to the left sidewall half way up, a left ovarian cyst, endometriosis, especially thick and severe ____ nodular vesicular, thicker on the left uterosacral ligament. She had moderate on the left sidewall. Upper side wall was easily treated, the lower sidewall she had 3 or 4 literally right on the left ureter and then some on the right sidewall as well and under the right tube and she had patent bilateral tubes with her chromotubation. COMPLICATIONS: None. DESCRIPTION OF PROCEDURE: This patient was taken to the operating room where general anesthesia was placed. The patient was placed in the dorsal lithotomy position in [facility]. The patient's abdomen and vagina were both prepped and draped in the normal sterile fashion and a straight cath urine was done prior to my arrival. Upon my arrival, a timeout was performed. Once everyone agreed on the patient, the site, the procedure, and the antibiotics, the procedure was initiated. A bivalved speculum was placed in the patient's vagina. A single-tooth tenaculum was used to grasp the anterior lip of the cervix. The Valtchev uterine manipulator was placed through the endocervical os, locked on the single tooth tenaculum and the bivalved speculum was then removed. At this point, extension tubing was placed on the end of the Valtchev and this was for the chromotubation to be able to be performed later, so I could attach the syringe with the diluted methylene blue to the end. All gloves were discarded and changed. Attention was then turned to the abdomen where 0.25% Marcaine with epinephrine was used to inject the area. Small infraumbilical skin incision was made over the existing scar, carried down through the underlying layer to the fascia with the curved Eunice. Then, a small incision was made. The curved Eunice was used to dissect through the subcuticular layer to the fascia. The 5 mm Visiport was used to directly into the abdominal cavity. Opening patient pressure was 10 or 11 mmHg. She had a very heavy anterior abdominal wall. Direct abdominal placement was confirmed via the laparoscope. The patient was placed in Trendelenburg position. Carbon dioxide gas was used to appropriately insufflate the abdominal cavity. Unfortunately, 15 was not enough to raise as her pressure with nothing was 11, so we did raise it to 17 or 18 mmHg to have some distention. At this point, left and right lower quadrant ports, once we found a clear area, we injected those areas as well and made small incisions and placed 5 mm atraumatic trocars in under direct visualization, 4-5 mL of air was placed in these trocar cuffs. The camera was moved laterally to look at the umbilical port, then it was also injected with air once it was in a good spot and free. The camera was moved back to the midline where we had all the above findings. The right upper quadrant was grossly normal. The bowel was grossly normal except some of the descending colon adhesed part way up to the sidewall on the left. Left ovarian cyst. The bladder looked okay. The right ovary was good. The right tube had some nodular under it, but the tube itself was not distended, dilated or compromised. Under the right tube and ovary was a little bit of endometriosis, 1 or 2 of them were right on or near the ureter, but a couple could be easily treated. There was nothing significant on the right uterosacral ligament, but the left uterosacral ligament was caked with thick nodular vesicular endometriosis that when we touched it, you could feel the core of it. So these were cauterized off once we found the ureter and did not go near those. There were 2 or 3 right on the left ureter I could not get and then several above it as well, probably another 7 or 8 lesions higher on the left sidewall, but clearly above the ureter that I was able to treat. So I got all the left uterosacral ligament and a few on the right and several on the upper left pelvic sidewall. At this point, the monopolar hook was used to do all of that. The monopolar hook was also used to incise where the left ovarian cyst was and remove the cyst wall and this was passed off for permanent pathology. There was no active bleeding here and then I did take down the left-sided adhesions as well cutting some of the filmy adhesions to the sidewall and then peeling them down gently off the sidewall. Initially, that was a little bit oozy on the left pelvic sidewall where we did the adhesiolysis, but it cleared right up and stopped, so at the end once all the vaporization was done, the lysis of adhesions was done, the left ovarian cystectomy was done and the inspection of everything else was done, we did do 60 mL of a dilute injectable saline with the methylene blue for the chromotubation and both tubes did fill and spill appropriately. So at this point, copious irrigation was used to rinse all of that out and then Evelio was placed over the left ovarian cyst wall area on the ovary and then the left-sided adhesions, both on the sidewall and the omentum on the pericolic fat on the descending colon. So, once this was done and it was completely dry and the Evelio was staying white, fluffy and powdery, the right and left lower quadrant ports were removed under direct visualization. The trocar was deflated, but it was left in and gas was released from the umbilical port. Once all the gas was out, it was pulled out. Both the right and left were removed under direct visualization and they were hemostatic before releasing the gas and taking the umbilical out. All three port sites were closed with 4-0 nylon at the skin and they had been injected at the beginning. She was awakened from anesthesia and brought to recovery room in stable condition. RENALDO PARDO MD DR: YANET/eze JOB#: [id number] / [id number]
--- NOTE | 2020-09-09 15:09 | PATHOLOGY ---
[facility] Accession Number: [id number] . 01 Material submitted: . ovary - LEFT OVARIAN CYST WALL. Modifiers: left, wall . 01 Clinical history: . ENDOMETRIOSIS, DYSPAREUNIA, REMOVAL OF OVARIAN CYST . 02 Diagnosis: Segments of ovarian tissue, lef ovarian cyst wall: - Hemorrhagic corpus luteal cyst. (JPM:phong; 09/09/2020) S 09/09/2020 1154 Local . 02 Comment: There is no evidence of malignancy. (JPM:phong; 09/09/2020) . 02 Electronically signed: . Biju Lu MD, Pathologist NPI- [id number] . 01 Gross description: . Received in formalin labeled "Prema Mack, left ovarian cyst wall" are multiple fragments of roche-brown soft tissue measuring in aggregate 2.0 x 1.5 x 0.5 cm. The specimen is submitted entirely in cassette A1. ([facility]; 09/08/2020) [facility] 09/08/2020 1201 Local . 02 Pathologist provided ICD-10: N83.12 . 02 CPT . 379763 Specimen Comment: A courtesy copy of this report has been sent to [phone], [phone] Specimen Comment: [id number] Specimen Comment: Report sent to / DR SNYDER Performed at: 01 [facility] [address] [facility] [address], [place] [id number] MD aJspal Bruce MD Phone: [phone] Performed at: 02 [facility] [address] [place], [place] [id number] MD Biju Lu MD Phone: [phone]
== END 2020-09-07 10:30 | disposition home or self-care (01) ==
LOC: SURG 06:08
PROVIDERS: ATTEND Obstetrics & Gynecology
DX: N83.12 Corpus luteum cyst of left ovary (principal); N94.6 Dysmenorrhea, unspecified; N92.0 Excessive and frequent menstruation with regular cycle; N80.8 Other endometriosis; N83.292 Other ovarian cyst, left side
CPT/HCPCS: 58350; 58662; 81025; A7015; J1100; J1885; J2250; J2405; J2704; J2710; J3010; J3490; J7030; Q9968

== ENCOUNTER 2020-10-16 12:03 | Emergency (ER) | payer BC, OTHER ==
[~2020-10-16] VITALS: Ht 154.9 cm; Wt 123.0 kg
[~2020-10-16 12:03] MED LIST changes: +HYDR-2761 PO; -ceFAZolin SODIUM 3 GM in IV DEXTROSE 5% 100ML 100 ML IV PRN
[2020-10-16 12:56] LABS: BASO # 0.1 x10^3/uL (0.0-0.2); BASO % 1 % (0-3); EOS % 0 % (0-3); HEMATOCRIT 42.1 % (36.0-47.0); LYMPH # 2.8 x10^3/uL (1.0-4.8); LYMPH % 22 % (24-48); MEAN CORPUSCULAR HEMOGLOBIN 28 pg (25-35); MEAN CORPUSCULAR HGB CONC 33 g/dL (31-37); MEAN CORPUSCULAR VOLUME 85 fL (79-100); MONO # 0.8 x10^3/uL (0.0-1.1); MONO % 7 % (0-9); NEUT # 8.7 x10^3/uL (1.8-7.7); NEUT % 70 % (31-73); PLATELET COUNT 356 x10^3/uL (140-400); RED BLOOD COUNT 4.97 x10^6/uL (3.50-5.40); WHITE BLOOD COUNT 12.4 x10^3/uL (4.0-11.0)
[2020-10-16] MEDS ORDERED: IV NORMAL SALINE 1000ML BAG 1,000 ML IV ONE (13:15)
[2020-10-16] MEDS ORDERED: ONDANSETRON PF 4 MG/2 ML VIAL. IV ONE (13:15)
[2020-10-16 13:18] LABS: CALCIUM 9.2 mg/dL (8.5-10.1); GFR 68.1; POTASSIUM 3.9 mmol/L (3.5-5.1)
[2020-10-16 13:23] LABS: ALBUMIN 4.5 g/dL (3.4-5.0); ALBUMIN/GLOBULIN RATIO 1.2 (1.0-1.7); TOTAL BILIRUBIN 0.4 mg/dL (0.2-1.0); TOTAL PROTEIN 8.3 g/dL (6.4-8.2)
[2020-10-16 13:28] LABS: SALIC < 2.8 mg/dL (2.8-20.0)
[2020-10-16 13:29] LABS: ACETAMIN < 2.0 mcg/ml (10-30); ETHANOL < 10 mg/dL (0-10)
[2020-10-16 13:38] LABS: BILIRUBIN,URINE NEGATIVE (NEG); CLARITY,URINE CLEAR; COLOR,URINE YELLOW; NITRITE,URINE NEGATIVE (NEG); PROTEIN,URINE NEGATIVE (NEG-TRACE); UROBILINOGEN,URINE 0.2 mg/dL (0.2 mg/dL)
--- NOTE | 2020-10-16 13:39 | ED.ADGEN ---
Past Medical History Past Medical History: Asthma, Endometriosis Additional Past Medical Histor: PCOS, neurocardiogenic syncope Past Surgical History: Cholecystectomy, Tonsillectomy Additional Past Surgical Histo: Addenoids, L knee, Smoking Status: Current Some Day Smoker Alcohol Use: Rarely Drug Use: None General Adult EDM: Chief Complaint: SYNCOPE HPI: HPI: Patient is a 24 year old female, accompanied by her mother, who presents to the emergency room for evaluation following a syncopal episode while on the couch today. Patient states that her hands and her feet felt tingly and then she felt like everything was closing in on her when she passed out for less than a minute. Patient states she has had a headache and felt dizzy prior to the syn cope. She states that she has had nausea whenever she tries to eat anything for the last 2 weeks so she has been unable to eat any food for 2 weeks. Patient states she has a lot of stress in her life right now with work and a recent separation from her spouse. She denies any suicidal ideations but reports that she "would not care if anything happened" to her. She denies any fever, cough, chest pain, shortness of breath, palpitations, vomiting, abdominal pain, or diarrhea. She currently rates her headache a 6 out of 10 on the pain scale, she describes it as a pounding headache. Review of Systems: Review of Systems: Complete ROS is negative unless otherwise noted in HPI. Current Medications: Current Medications Medications (Trade) Dose Ordered Sig/Hans Start Time Stop Time Status Last Admin Dose Admin Ondansetron HCl (Zofran) 4 mg 1X ONCE 10/16/20 13:15 10/16/20 13:16 DC 10/16/20 13:09 4 MG Sodium Chloride 1,000 ml @ 1,000 mls/hr 1X ONCE 10/16/20 13:15 10/16/20 14:14 DC 10/16/20 13:10 1,000 MLS/HR Allergies: Allergies: Allergies Coded Allergies Type Severity Reaction Last Updated Verified No Known Drug Allergies 09/07/20 No Physical Exam: PE: See Above Constitutional: Well developed, well nourished, no acute distress, non-toxic appearance, obese. [] HENT: Normocephalic, atraumatic, bilateral external ears normal, nose normal. [] Eyes: PERRLA, EOMI, conjunctiva normal, no discharge. [] Neck: Normal range of motion, no stridor. [] Cardiovascular:Heart rate regular rhythm Lungs & Thorax: Respirations even and unlabored, no retractions, no respiratory distress Abdomen: soft, no tenderness Skin: Warm, dry, no erythema, no rash. [] Extremities: No cyanosis, ROM intact, no edema. [] Neurologic: Alert and oriented X 3, normal motor, normal sensory, no focal deficits noted. [] Psychologic: Flat affect, judgement normal, mood depressed. [] Current Patient Data: Labs: Laboratory Tests Test 10/16/20 12:12 10/16/20 12:25 10/16/20 12:28 Urine Collection Type Unknown Urine Color Yellow Urine Clarity Clear Urine pH 6.0 (<5.0-8.0) Urine Specific [place] <=1.005 (1.000-1.030) Urine Protein Negative mg/dL (NEG-TRACE) Urine Glucose (UA) Negative mg/dL (NEG) Urine Ketones (Stick) 15 mg/dL (NEG) Urine Blood Negative (NEG) Urine Nitrite Negative (NEG) Urine Bilirubin Negative (NEG) Urine Urobilinogen Dipstick 0.2 mg/dL (0.2 mg/dL) Urine Leukocyte Esterase Trace (NEG) Urine RBC 0 /HPF (0-2) Urine WBC 1-4 /HPF (0-4) Urine Squamous Epithelial Cells Many /LPF Urine Bacteria Many /HPF (0-FEW) Urine Opiates Screen Neg (NEG) Urine Methadone Screen Neg (NEG) Urine Barbiturates Neg (NEG) Urine Phencyclidine Screen Neg (NEG) Urine Amphetamine/Methamphetamine Neg (NEG) Urine Benzodiazepines Screen Neg (NEG) Urine Cocaine Screen Neg (NEG) Urine Cannabinoids Screen Neg (NEG) Urine Ethyl Alcohol Neg (NEG) White Blood Count 12.4 x10^3/uL (4.0-11.0) H Red Blood Count 4.97 x10^6/uL (3.50-5.40) Hemoglobin 14.0 g/dL (12.0-15.5) Hematocrit 42.1 % (36.0-47.0) Mean Corpuscular Volume 85 fL (79-100) Mean Corpuscular Hemoglobin 28 pg (25-35) Mean Corpuscular Hemoglobin Concent 33 g/dL (31-37) Red Cell Distribution Width 14.0 % (11.5-14.5) Platelet Count 356 x10^3/uL (140-400) Neutrophils (%) (Auto) 70 % (31-73) Lymphocytes (%) (Auto) 22 % (24-48) L Monocytes (%) (Auto) 7 % (0-9) Eosinophils (%) (Auto) 0 % (0-3) Basophils (%) (Auto) 1 % (0-3) Neutrophils # (Auto) 8.7 x10^3/uL (1.8-7.7) H Lymphocytes # (Auto) 2.8 x10^3/uL (1.0-4.8) Monocytes # (Auto) 0.8 x10^3/uL (0.0-1.1) Eosinophils # (Auto) 0.0 x10^3/uL (0.0-0.7) Basophils # (Auto) 0.1 x10^3/uL (0.0-0.2) Sodium Level 140 mmol/L (136-145) Potassium Level 3.9 mmol/L (3.5-5.1) Chloride Level 101 mmol/L (98-107) Carbon Dioxide Level 26 mmol/L (21-32) Anion Gap 13 (6-14) Blood Urea Nitrogen 7 mg/dL (7-20) Creatinine 1.0 mg/dL (0.6-1.0) Estimated GFR (Cockcroft-Gault) 68.1 BUN/Creatinine Ratio 7 (6-20) Glucose Level 89 mg/dL (70-99) Calcium Level 9.2 mg/dL (8.5-10.1) Total Bilirubin 0.4 mg/dL (0.2-1.0) Aspartate Amino Transferase (AST) 20 U/L (15-37) Alanine Aminotransferase (ALT) 51 U/L (14-59) Alkaline Phosphatase 61 U/L (46-116) Total Protein 8.3 g/dL (6.4-8.2) H Albumin 4.5 g/dL (3.4-5.0) Albumin/Globulin Ratio 1.2 (1.0-1.7) Salicylates Level < 2.8 mg/dL (2.8-20.0) L Salicylate Last Dose Date Unknown Salicylate Last Dose Time Unknown Acetaminophen Level < 2.0 mcg/ml (10-30) L Acetaminophen Last Dose Date Unknown Acetaminophen Last Dose Time Unknown Ethyl Alcohol Level < 10 mg/dL (0-10) POC Urine HCG, Qualitative Hcg negative (Negative) Laboratory Tests 10/16/20 12:25 Laboratory Tests 10/16/20 12:25 Vital Signs: Vital Signs Date Time Temp Pulse Resp B/P (MAP) Pulse Ox O2 Delivery O2 Flow Rate FiO2 10/16/20 15:27 86 15 181/74 (109) 100 Room Air 10/16/20 12:20 98.4 98.4 EKG: EK- Sinus rhythm, rate 85, NO STEMI read by Dr. Joiner [] Heart Score: Risk Factors: Risk Factors: DM, Current or recent (<one month) smoker, HTN, HLP, family history of CAD, obesity. Risk Scores: Score 0 - 3: 2.5% MACE over next 6 weeks - Discharge Home Score 4 - 6: 20.3% MACE over next 6 weeks - Admit for Clinical Observation Score 7 - 10: 72.7% MACE over next 6 weeks - Early Invasive Strategies Radiology/Procedures: Radiology/Procedures: [] Course & Med Decision Making: Course & Med Decision Making Pertinent Labs and Imaging studies reviewed. (See chart for details) Cassy with the PAT team was out to evaluate the patient. A safety plan was developed and the patient was given resources for outpatient follow-up for mental health services. Patient's CBC CMP and UA were unremarkable. UDS is unremarkable. The patient's vital signs are stable. EKG revealed no acute findings. I advised the patient that most likely her symptoms are due to stress. Encourage her to follow-up with the mental health resources that were provided to her. Also follow-up with her primary care doctor for further evaluation and treatment. Return to the ER if symptoms worsen or fever develops. Patient verbalized an understanding of home care, medications, follow-up, and return to ED instructions and was in agreement with the plan of care. [] Dragon Disclaimer: Dragon Disclaimer: This electronic medical record was generated, in whole or in part, using a voice recognition dictation system. Departure Departure Impression: Primary Impression: Stress response Additional Impression: Situational syncope Disposition: 01 DC HOME SELF CARE/HOMELESS Condition: STABLE Referrals: JOHN SNYDER DO (PCP) Patient Instructions: Stress, Syncope, [id number] Additional Instructions: Use the resources provided to you by [facility] to follow up with mental health services. Follow up with your primary care doctor in 1-2 days for further treatment and evaluation. Return to the ER if symptoms worsen or you develop a fever. Problem Qualifiers NEDRA GARRISON APRN Oct 16, 2020 13:39
[2020-10-16 13:45] LABS: AMPHETAMINE/METHAMPHETAMINE NEG (NEG); BARBITURATES NEG (NEG); BENZODIAZEPINES NEG (NEG); CANNABINOIDS NEG (NEG); COCAINE NEG (NEG); METHADONE NEG (NEG); OPIATES NEG (NEG); PHENCYCLIDINE NEG (NEG)
[2020-10-16 13:53] LABS: BACTERIA,URINE MANY /HPF (0-FEW)
[2020-10-16 13:55] LABS: RBC,URINE 0 /HPF (0-2)
[2020-10-16 15:27] VITALS: BP 181/74
--- NOTE | 2020-10-17 13:42 | EKG ---
[facility] [address] [place] [address] Test Date: 2020-10-16 Test Time: 12:22:48 Pat Name: SANDIE MOY Department: Room: Gender: F Graphic Design Manager: : 1995 Requested By: NEDRA GARRISON Order Number: [id number] Reading MD: Lukasz Palmer Measurements Intervals [place] Rate: 85 P: 32 AK: 142 QRS: 24 QRSD: 86 T: 10 QT: 336 QTc: 405 Interpretive Statements SINUS RHYTHM Electronically Signed On 10-18-2020 10:41:47 SOCIAL SERVICES DIRECTOR by Lukasz Palmer
== END 2020-10-16 15:25 | disposition home or self-care (01) ==
LOC: ER 12:03
DX: R55 Syncope and collapse (principal); F43.9 Reaction to severe stress, unspecified; R42 Dizziness and giddiness; R51.9 Headache, unspecified; J45.909 Unspecified asthma, uncomplicated; F17.200 Nicotine dependence, unspecified, uncomplicated; Z90.49 Acquired absence of other specified parts of digestive tract
CPT/HCPCS: 36415; 80053; 80307; 80329; 81001; 81025; 85025; 87086; 93005; 96361; 96374; 99285; G0480; J2405; J7030

== ENCOUNTER 2021-12-01 10:54 | Emergency (ER) | payer BC ==
[~2021-12-01] VITALS: Ht 162.6 cm; Wt 125.0 kg
[2021-12-01 11:57] LABS: BASO # 0.1 x10^3/uL (0.0-0.2); BASO % 1 % (0-3); EOS # 0.1 x10^3/uL (0.0-0.7); EOS % 1 % (0-3); HEMATOCRIT 37.7 % (36.0-47.0); HEMOGLOBIN 12.4 g/dL (12.0-15.5); LYMPH # 3.6 x10^3/uL (1.0-4.8); LYMPH % 40 % (24-48); MEAN CORPUSCULAR HEMOGLOBIN 28 pg (25-35); MEAN CORPUSCULAR HGB CONC 33 g/dL (31-37); MEAN CORPUSCULAR VOLUME 84 fL (79-100); MONO # 0.9 x10^3/uL (0.0-1.1); MONO % 9 % (0-9); NEUT # 4.5 x10^3/uL (1.8-7.7); NEUT % 49 % (31-73); PLATELET COUNT 326 x10^3/uL (140-400); RED BLOOD COUNT 4.49 x10^6/uL (3.50-5.40); RED CELL DISTRIBUTION WIDTH 14.3 % (11.5-14.5); WHITE BLOOD COUNT 9.2 x10^3/uL (4.0-11.0)
--- NOTE | 2021-12-01 12:19 | RAD ---
EXAM: Pelvic sonogram. HISTORY: Excessive vaginal bleeding. TECHNIQUE: Sonographic imaging of the pelvis was performed. COMPARISON: None. FINDINGS: The uterus measures 9.3 x 5.6 x 5.0 cm. The endometrial stripe measures 8.8 mm in thickness . The ovaries are normal in size and demonstrate normal blood flow. There is no pelvic free fluid. IMPRESSION: Unremarkable pelvic sonogram. Electronically signed by: Patricia Currie MD (12/01/2021 12:16 PM) [id number]
--- NOTE | 2021-12-01 12:46 | PHYS DOC ---
Past Medical History Past Medical History: Asthma, Endometriosis Additional Past Medical Histor: PCOS Past Surgical History: Other Additional Past Surgical Histo: uterine ablation Smoking Status: Current Some Day Smoker Alcohol Use: Rarely Drug Use: None General Adult EDM: Chief Complaint: VAGINAL BLEEDING HPI: HPI: Patient is a 25 year old female with history of PCOS who presents with heavy menstrual bleeding. Patient reports associated back pain and lower abdominal cramping, consistent with menstruation. She is concerned because she is bleeding more than her normal periods. Patient reports she had nausea for a brief period of time yesterday, but denies any nausea now. Patient reports that the amount of bleeding she has had the past couple of days fills a tampon approximately "3 every 45 minutes." She states that this level of bleeding is similar to a "cyst rupture" that she had in the past, however at that time she did not have back pain and she was not on her period at that time. Patient states that she is sexually active, so there is "always a chance of ." She has not seen her oyster opener in over a year. Patient called her oyster opener today, who advised she present to the emergency department for evaluation. Review of Systems: Review of Systems: Constitutional: Denies fever, chills or generalized weakness Eyes: Denies change in visual acuity, visual field deficits or discharge HENT: Denies ear pain, nasal congestion or sore throat Respiratory: Denies cough or shortness of breath Cardiovascular: Denies chest pain, palpitations or edema GI: See HPI : See HPI Musculoskeletal: See HPI Integument: Denies rash or other skin lesion Neurologic: Denies headache, focal weakness or sensory changes Heart Score: C/O Chest Pain: No Allergies: Allergies: Allergies Coded Allergies Type Severity Reaction Last Updated Verified No Known Drug Allergies 12/01/21 No Physical Exam: PE: Constitutional: Well developed, well nourished, no acute distress, non-toxic appearance. HENT: Normocephalic, atraumatic, bilateral external ears without deformity or discharge, nose without deformity or discharge. Eyes: EOMI, conjunctiva pink and moist, no discharge. Neck: Normal range of motion, no stridor. Cardiovascular: Heart rate regular rhythm, no murmur. Lungs & Thorax: Bilateral breath sounds clear to auscultation. Abdomen: Bowel sounds normal, soft, no tenderness, no masses, no pulsatile masses. Genital: Hair removed. External genitalia without lesions or evidence of trauma, jeevan blood appreciated on external genitalia as well as at the introitus. No lacerations, lesions or evidence of trauma appreciated in the vaginal canal or on the cervix, no vaginal or labial hematoma, no clots appreciated. Skin: Warm, dry, no erythema, no rash, no pallor. Neurologic: Alert and oriented x4, no focal deficits noted. Current Patient Data: Labs: Laboratory Tests Test 12/01/21 11:45 White Blood Count 9.2 x10^3/uL (4.0-11.0) Red Blood Count 4.49 x10^6/uL (3.50-5.40) Hemoglobin 12.4 g/dL (12.0-15.5) Hematocrit 37.7 % (36.0-47.0) Mean Corpuscular Volume 84 fL (79-100) Mean Corpuscular Hemoglobin 28 pg (25-35) Mean Corpuscular Hemoglobin Concent 33 g/dL (31-37) Red Cell Distribution Width 14.3 % (11.5-14.5) Platelet Count 326 x10^3/uL (140-400) Neutrophils (%) (Auto) 49 % (31-73) Lymphocytes (%) (Auto) 40 % (24-48) Monocytes (%) (Auto) 9 % (0-9) Eosinophils (%) (Auto) 1 % (0-3) Basophils (%) (Auto) 1 % (0-3) Neutrophils # (Auto) 4.5 x10^3/uL (1.8-7.7) Lymphocytes # (Auto) 3.6 x10^3/uL (1.0-4.8) Monocytes # (Auto) 0.9 x10^3/uL (0.0-1.1) Eosinophils # (Auto) 0.1 x10^3/uL (0.0-0.7) Basophils # (Auto) 0.1 x10^3/uL (0.0-0.2) Laboratory Tests 12/01/21 11:45 Vital Signs: Vital Signs Date Time Temp Pulse Resp B/P (MAP) Pulse Ox O2 Delivery O2 Flow Rate FiO2 12/01/21 11:20 98.7 66 15 128/69 (88) 98 Room Air 98.7 Radiology/Procedures: Radiology/Procedures: PROCEDURE: PELVIS ULTRASOUND EXAM: Pelvic sonogram. HISTORY: Excessive vaginal bleeding. TECHNIQUE: Sonographic imaging of the pelvis was performed. COMPARISON: None. FINDINGS: The uterus measures 9.3 x 5.6 x 5.0 cm. The endometrial stripe measures 8.8 mm in thickness. The ovaries are normal in size and demonstrate normal blood flow. There is no pelvic free fluid. IMPRESSION: Unremarkable pelvic sonogram. Electronically signed by: Patricia Currie MD (12/01/2021 12:16 PM) [id number] Course & Med Decision Making: Course & Med Decision Making Pertinent Labs and Imaging studies reviewed. (See chart for details) 25 year old female with hx of PCOS presents with heavier than normal menstrual bleeding. Patient was concerned about her increased bleeding during her period, so she called her oyster opener. She states she hasn't seen her coil assembler in >1 year and was told to present to ED for further evaluation. Workup is reassuring. Patient advised to follow up with her coil assembler at her earliest convenience. Patient understands and is agreeable to DC plan. Dragon Disclaimer: DragBionostra Disclaimer: This electronic medical record was generated, in whole or in part, using a voice recognition dictation system. Departure Departure Impression: Primary Impression: Heavy menstrual bleeding Qualified Codes: N92.1 - Excessive and frequent menstruation with irregular cycle Disposition: 01 HOME / SELF CARE / HOMELESS Condition: STABLE Referrals: JOHN SNYDER DO (PCP) Additional Instructions: You were evaluated today for heavy menstrual bleeding. As discussed, your work- up today was very reassuring. Please begin taking over the counter NSAIDs (Motrin, Advil, Aleve) for your discomfort, as they are most effective for pain related to menstruation. You should follow-up with your oyster opener at your convenience for further evaluation and management. Please return to the emergency department if your symptoms worsen or you develop new symptoms. ADRIÁN CHAVEZ Dec 01, 2021 12:46
[2021-12-01 14:05] VITALS: BP 117/62
== END 2021-12-01 14:14 | disposition home or self-care (01) ==
LOC: ER 10:54
DX: N92.1 Excessive and frequent menstruation with irregular cycle (principal); J45.909 Unspecified asthma, uncomplicated; F17.200 Nicotine dependence, unspecified, uncomplicated
CPT/HCPCS: 36415; 76856; 85025; 99284-25